=== PATIENT | male | born 1960 | race Caucasian/White ===

== ENCOUNTER 2017-06-18 14:19 | Emergency (ER) | payer OTHER ==
[~2017-06-18] VITALS: Ht 175.3 cm; Wt 106.0 kg
[~2017-06-18 14:19] MED LIST: AMLODIPINE BESYL5 MG PO; GLYBURIDE5 MG PO; NAPROSYN500 MG PO; PERCOCET 5/31 TABLET PO; VALSARTAN-HCTZ1 EAC1 PO
[2017-06-18 18:20] LABS: APPEARANCE CLEAR ((CLEAR)); BILIRUBIN NEGATIVE; BLOOD NEGATIVE; COLOR YELLOW ((YELLOW)); GLUCOSE (STRIP) >=500; KETONES 5; LEUKOCYTES NEGATIVE; NITRITE NEGATIVE; PROTEIN (STRIP) NEGATIVE; SPECIFIC GRAVITY 1.028 (1.000-1.030); UCUL ADDED? NO; UROBILINOGEN 0.2 MG/DL (0.2-1.0)
[2017-06-18] MEDS ORDERED: MOTRIN600 MG PO (18:38)
[2017-06-18] MEDS ORDERED: SKELAXIN800 MG PO (18:38)
[2017-06-18 19:05] VITALS: BP 145/80
== END 2017-06-18 19:05 | disposition home or self-care (01) ==
LOC: EME 14:19
PROVIDERS: Physician Assistant
DX: S39.012A Strain of muscle, fascia and tendon of lower back, initial encounter (principal); W01.0XXA Fall on same level from slipping, tripping and stumbling without subsequent striking against object, initial encounter; Y99.0 Civilian activity done for income or pay; I10 Essential (primary) hypertension; E11.9 Type 2 diabetes mellitus without complications; Z79.84 Long term (current) use of oral hypoglycemic drugs
CPT/HCPCS: 72100; 72220; 81003; 99281; 99283